=== PATIENT | female | born 1960 | race Caucasian/White ===

== ENCOUNTER → 2019-05-24 | Outpatient (CLI) | payer BC ==
--- NOTE | 2019-05-29 08:59 | RADIOLOGY REPORT (SQ) ---
EXAM DESCRIPTION: LUMBAR SPINE W/FLEX/EXT COMPLETED DATE/TIME: 05/24/2019 2:09 pm REASON FOR STUDY: LUMBAR RADICULOPATHY; CERVICALGIA M54.16 RADICULOPATHY, LUMBAR REGION M54.2 CERV ICALGIA COMPARISON: None. NUMBER OF VIEWS: Seven view TECHNIQUE: AP, oblique, L5-S1, and lateral views of the lumbar spine with flexion and extension were obtained. LIMITATIONS: None. FINDINGS: MINERALIZATION: Normal. SEGMENTATION: There are 5 lumbar-type vertebral bodies. There is no transitional anatomy at the lumb osacral junction. ALIGNMENT: There is grade 1 anterolisthesis of L3 relative to L4. FLEXION/EXTENSION: No dynamic subluxation with flexion and extension. VERTEBRAE: The lumbar vertebral body heights are preserved. There is no fracture. DISCS: Status post discectomy with placement of disc prostheses L4-5 and L5-S1. POSTERIOR ELEMENTS: Laminectomy defect at L5 HARDWARE: Status post transpedicular and interbody fusion from L4-L5 to L5-S1. The hardware is intac t. There is cement along the facet joints. OTHER: Atherosclerotic calcification of the abdominal aorta. IMPRESSION: Status post transpedicular and interbody fusion from L4-L5 to L5-S1. The hardware is in tact and at L3-L4 there is evidence of adjacent segment disease with grade 1 retrolisthesis of L3 rel ative to L4. There is no dynamic subluxation with flexion and extension. TECHNICAL DOCUMENTATION: JOB ID: [id number] [employer]- All Rights Reserved Reading location - IP/workstation name: [email or web address]
--- NOTE | 2019-05-29 09:04 | RADIOLOGY REPORT (SQ) ---
EXAM DESCRIPTION: C SP 6 OR MORE VIEWS COMPLETED DATE/TIME: 05/24/2019 2:09 pm REASON FOR STUDY: LUMBAR RADICULOPATHY; CERVICALGIA M54.16 RADICULOPATHY, LUMBAR REGION M54.2 CERV ICALGIA COMPARISON: None. NUMBER OF VIEWS: Seven views. TECHNIQUE: AP, lateral, obliques, flexion, extension, and odontoid radiographic images acquired of t he cervical spine. LIMITATIONS: None. FINDINGS: MINERALIZATION: Normal. ALIGNMENT: There is straightening of the normal lordotic curvature of the cervical spine. There is n o atlantoaxial dissociation. FLEXION/EXTENSION: There is no spondylolisthesis or evidence of dynamic subluxation with flexion and extension. VERTEBRAE: The cervical vertebral body heights are preserved. There is no fracture. DISCS: Status post cystectomy with placement of intervertebral disc prosthesis at C5-C6. The C6-C7 i ntervertebral disc space is narrowed and there anterolateral osteophytes. FORAMINA: Moderate to severe osteophytic foraminal stenosis at C5-C6 on the left and mild to moderate stenosis at C3-C4, C4-C5 and C5-C6 on the right LATERAL AND POSTERIOR ELEMENTS: Intact. HARDWARE: Status post ACDF at C5-C6. The hardware is intact. SOFT TISSUES: No abnormality. OTHER: No other findings. IMPRESSION: Status post ACDF at C5-C6 with evidence of adjacent segment disease at C6-C7. There is no spondylolisthesis or evidence of dynamic subluxation with flexion and extension. At C5-C6 on the left there is moderate to severe osteoporotic foraminal stenosis, and on the right at C3-C4, C4-C5 an d C5-C6 there is mild to moderate osteophytic foraminal stenosis. TECHNICAL DOCUMENTATION: JOB ID: [id number] [employer]- All Rights Reserved Reading location - IP/workstation name: [email or web address]
== END ==
LOC: OD 13:11
PROVIDERS: ATTEND Physician Assistant
DX: M54.16 Radiculopathy, lumbar region (principal); M48.02 Spinal stenosis, cervical region; M54.2 Cervicalgia
CPT/HCPCS: 72052; 72114

== ENCOUNTER → 2019-06-16 | Outpatient (CLI) | payer BC ==
--- NOTE | 2019-06-16 13:19 | RADIOLOGY REPORT (SQ) ---
EXAM DESCRIPTION: MRI CERVICAL SPINE COMBO COMPLETED DATE/TIME: 06/16/2019 10:07 am REASON FOR STUDY: (M50.30)OTHER CERVICAL DISC DEGENERATION, UNSP CERVICAL REGION M50.30 OTHER CERVI BRYSON DISC DEGENERATION, UNSP CERVICAL REGIO COMPARISON: Recent radiographs. TECHNIQUE: Sagittal and Axial imaging includes T1, T2, STIR and gradient echo sequences. Post contr ast T1 sequences. 10 cc Dotarem. LIMITATIONS: None. FINDINGS: ALIGNMENT: Normal. VERTEBRAE: Intact. BONE MARROW: Normal. No marrow replacement or reactive changes. DISCS: Mild disc disease above and below surgery, see detailed levels below. HARDWARE: Anterior instrumentation with mild associated artifact at C5-6. CORD AND BASE OF BRAIN: Normal in size and signal intensity. SOFT TISSUES: No soft tissue masses. C1-C2: No stenosis. C2-C3: Mild facet arthropathy with bilateral relatively mild foraminal narrowing. C3-C4: Mild central protrusion without impingement. Mild facet arthropathy. Grossly mild -moderate bilateral foraminal narrowing. C4-C5: No significant spinal stenosis or exit foraminal stenosis. C5-C6: Operative level, mildly limited assessment. No evidence of significant central narrowing or h igh-grade foraminal stenosis. C6-C7: Central protrusion contacts the cord without mass effect. Central canal relatively patent. M ild right and at least moderate left foraminal stenosis. C7-T1: No significant spinal stenosis or exit foraminal stenosis. UPPER THORACIC: Incompletely imaged. No significant spinal stenosis or exit foraminal stenosis. OTHER: No abnormal enhancement with gadolinium. IMPRESSION: 1. No high-grade central stenosis or cord compression. 2. Disc disease at C6-7. Cord contact without impingement. 3. Predominantly foraminal encroachment, as outlined above. 4. C5-6 postoperative changes. No central stenosis here. 5. No spinal malalignment detected. TECHNICAL DOCUMENTATION: JOB ID: [id number] [employer]- All Rights Reserved Reading location - IP/workstation name: [email or web address]
== END ==
LOC: RAD 08:53
PROVIDERS: ATTEND Physician Assistant
DX: M50.323 Other cervical disc degeneration at C6-C7 level (principal)
CPT/HCPCS: 82565; 72156; A9576

== ENCOUNTER → 2019-07-02 | Outpatient (CLI) | payer BC ==
--- NOTE | 2019-07-02 09:45 | RADIOLOGY REPORT (SQ) ---
EXAM DESCRIPTION: MRI LUMBAR SPINE COMBO COMPLETED DATE/TIME: 07/02/2019 8:56 am REASON FOR STUDY: RADICULOPATHY, LUMBAR REGION M54.16 RADICULOPATHY, LUMBAR REGION COMPARISON: None. TECHNIQUE: Sagittal and Axial imaging includes T1, T1 post gadolinium, T2, STIR and gradient echo se quences. Coronal T2/HASTE imaging. CONTRAST TYPE AND DOSE: 10 mL Dotarem. RENAL FUNCTION: Not indicated. ACR Type II contrast agent associated with few, if any, unconfounded cases of NSF LIMITATIONS: Metallic artifact from bilateral transpedicular screws and dorsal fixation plates from L4 through S1. FINDINGS: VISUALIZED UPPER ABDOMEN: Limited evaluation. No acute or suspicious findings suggested. SEGMENTATION: No transitional anatomy. The lowest well-developed disc space is labeled L5-S1. ALIGNMENT: Anatomic. VERTEBRAE: Intact. No fractures. BONE MARROW: Normal. No marrow replacement or reactive changes. DISC SIGNAL: Fusion at L4-5 and L5-S1. POSTERIOR ELEMENTS: Bilateral laminectomy at L5 HARDWARE: Bilateral transpedicular screws and dorsal fixation plates from L4 through S1 CORD AND CONUS: Normal in size and signal intensity. Conus at the L1-2 level. SOFT TISSUES: No aortic aneurysm seen. No bulky retroperitoneal adenopathy or mass. No paraspinal mas s or fluid. T12-L1: Mild bilateral facet hypertrophy. No central or foraminal stenosis. L1-L2: Mild bilateral facet hypertrophy. No central or foraminal stenosis L2-L3: Moderate bilateral facet hypertrophy. No central stenosis. Mild bilateral inferior foraminal narrowing L3-L4: Moderate to marked central canal stenosis results from broad diffuse posterior disc bulging an d very bulky bilateral facet and ligament hypertrophy. There is effacement of the CSF around the lum bar nerve roots, best shown on axial T2 image 18 and sagittal T2 image 8. Moderate bilateral foramin al narrowing is present without definite exiting L3 nerve root impingement. L4-L5: Post discectomy and fusion. At the disc level, no central stenosis is present. There is mild bilateral inferior foraminal narrowing without exit nerve root impingement L5-S1: Post bilateral laminectomy, discectomy and fusion. No central stenosis. Mild bilateral jerri inal narrowing without exiting L5 nerve root impingement SACRUM: Visualized upper sacrum intact. ENHANCEMENT: No abnormal conus or lumbar nerve root enhancement OTHER: No other significant findings. IMPRESSION: [id number] central canal stenosis at L3-4 TECHNICAL DOCUMENTATION: JOB ID: [id number] [employer]- All Rights Reserved Reading location - IP/workstation name: [email or web address]
== END ==
LOC: RAD 07:57
PROVIDERS: ATTEND Pain Medicine Pain Medicine
DX: M54.16 Radiculopathy, lumbar region (principal); M48.061 Spinal stenosis, lumbar region without neurogenic claudication
CPT/HCPCS: 72158; A9576